=== PATIENT | male | born 1980 | race Two or more races ===

== ENCOUNTER 2024-05-11 08:00 | Day surgery (SDC) | payer OTHER, SELFPAY ==
[2024-05-10 13:54] VITALS: BMI 29.0
[2024-05-11] VITALS (13 sets, daily range): BP systolic 109–159; BP diastolic 68–97; PULSE 70–110; RESP 10–24; TEMP 36.7–36.9; O2SAT 95–100; BMI 28.7
[2024-05-11] MEDS: SODIUM CHLORIDE 0.9% 250 ML 250 ML 125 ML IV (11:25)
[2024-05-11] MEDS: ONDANSETRON INJ 2 MG/ML INJ 2 ML 4 MG IV (11:31)
[2024-05-11] MEDS: DiphenhydrAMINE INJ 50 MG/ML VIAL 25 MG IV (11:31)
[2024-05-11] MEDS: fentaNYL CIT INJ 50 mCg/ML AMP 2ML (ASD USE ONLY) 25 MCG IV (11:35)
[2024-05-11] MEDS: MEPERIDINE INJ 25 MG/ML VIAL (ASD USE ONLY) IV (11:51)
[2024-05-11] MEDS: MIDAZOLAM INJ 1 MG/ML VIAL 2 ML (ASD USE ONLY) 2 MG IV (11:51)
--- NOTE | 2024-05-11 16:32 | SUR.PHASEII ---
1202: Pt received for recovery. Report from Dianna CRAFT. Pt very sleepy. Is arousable. Resp even, unlabored. VS stable. Denies pain. 1233: Pt more awake, alert. Sitting up tolerating po fluids with no difficulty swallowing and no n/v. 1255: Pt fully awake, oriented x3. Pt and stated understanding of discharge instructions via mysql database administrator Renay #[id number]. Pt discharged from [facility] in stable condition.
== END 2024-05-11 12:55 | disposition home or self-care (01) ==
PROVIDERS: PCP Nurse Practitioner Family; Referring Provider Specialist; Visit Provider Specialist
PROC: 0DBE8ZX Excision of Large Intestine, Via Natural or Artificial Opening Endoscopic, Diagnostic (ICD-10-PCS; CPT 45380; principal; 2024-05-11 12:15)
PROC: (CPT 43239; 2024-05-11 12:15)
DX: K64.9 Unspecified hemorrhoids (principal)
CPT/HCPCS: 45378; A4649; J1200; J2175; J2250; J2405; J3010; J7050